=== PATIENT | female | born 1940 | race Caucasian/White ===

== ENCOUNTER 2016-04-26 09:54 | Emergency (ER) | payer OTHER, MEDICARE ==
[~2016-04-26] VITALS: Ht 142.2 cm; Wt 66.7 kg
--- NOTE | 2016-04-26 10:54 | RADIOLOGY REPORT ---
EXAMINATION: XR KNEE, LEFT CLINICAL INFORMATION: Pain in the left knee. COMPARISON: None TECHNIQUE: 5 views of the left knee. FINDINGS: There is no evidence of fracture, dislocation, or knee joint effusion. There is mild joint space loss in the medial compartment. The soft tissues appear unremarkable. IMPRESSION: No evidence of fracture, dislocation, or joint effusion.
--- NOTE | 2016-04-26 11:00 | RADIOLOGY REPORT ---
EXAMINATION: XR SHOULDER, LEFT CLINICAL INFORMATION: Pain to left shoulder. Assess for fracture. COMPARISON: None TECHNIQUE: Four views of the left shoulder. FINDINGS: The bones and soft tissues are normal. No fractures are demonstrated. Glenohumeral and acromioclavicular alignment is anatomic. There is irregularity at the acromioclavicular joint, consistent with degenerative changes. There is a small calcification along the lateral aspect of the greater tuberosity of the humerus, consistent with calcific tendonitis. There are no abnormal soft tissue calcifications. The visualized lung alberto are well-aerated. IMPRESSION: 1. There are no acute fractures or dislocations. 2. There are degenerative changes at the acromioclavicular joint and suggestion of calcific tendonitis.
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
[2016-04-26 11:17] VITALS: BP 127/60
[2016-04-26] MEDS ORDERED: LISINOPRIL-HCT1 EAC2 PO (11:18)
[2016-04-26] MEDS ORDERED: GABAPENTIN300 M2 PO (11:18)
[2016-04-26] MEDS ORDERED: LO-DOSE ASPIRIN81 MG PO (11:19)
[2016-04-26] MEDS ORDERED: MECLIZINE HCL25 M2 (11:19)
== END 2016-04-26 11:50 ==
LOC: ERH 09:54
DX: M25.512 Pain in left shoulder (principal); M25.562 Pain in left knee
CPT/HCPCS: 73030-LT; 73560-LT